=== PATIENT | female | born 1975 | race Caucasian/White ===

== ENCOUNTER 2022-06-14 13:25 | Emergency (ER) | payer BC ==
[2022-06-14 13:37] VITALS: TEMP 97.3; BMI 33.7
[2022-06-14] MEDS ORDERED: GABAPENTIN 300 MG CAPSULE PO ONE (14:21)
[2022-06-14] MEDS ORDERED: SODIUM CHLORIDE 1,000 ML IV STA (14:21)
[2022-06-14] MEDS ORDERED: GABAPENTIN 300 MG CAPSULE ONE (14:36)
[2022-06-14 15:09] LABS: BASO % 0.8 % (0-2.0); EOS % 1.9 % (0-4.5); HEMOGLOBIN 14.1 GM/dL (10.7-15.3); LYMPH % 15.1 % (8-40); MCH 27.6 pg (25.7-33.7); MCHC 32.8 g/dl (32.0-36.0); MEAN CELL VOLUME 84.1 fl (80-96); MONO % 8.1 % (3.8-10.2); NEUT % 74.1 % (42.8-82.8); PLATELET COUNT 290 10^3/uL (134-434); RBC 5.12 M/mm3 (3.60-5.2); RDW 15.2 % (11.6-15.6); WHITE BLOOD COUNT 7.6 K/mm3 (4.0-10.0)
[2022-06-14 15:30] LABS: CALCIUM 9.4 mg/dL (8.5-10.1)
[2022-06-14 15:31] LABS: ALBUMIN 4.1 g/dl (3.4-5.0); BLOOD UREA NITROGEN 9.4 mg/dL (7-18)
[2022-06-14 15:33] LABS: PHOSPHOROUS 1.7 mg/dL (2.5-4.9)
[2022-06-14 15:34] LABS: CREATININE 0.7 mg/dL (0.55-1.3)
[2022-06-14 15:35] LABS: BILIRUBIN,TOTAL 0.4 mg/dL (0.2-1); TOT PROT 7.7 g/dl (6.4-8.2)
[2022-06-14 16:40] VITALS: BP 148/90; PULSE 76; RESP 20
== END 2022-06-14 16:40 | disposition home or self-care (01) ==
LOC: JER 13:25
PROC: 3E0337Z Introduction of Electrolytic and Water Balance Substance into Peripheral Vein, Percutaneous Approach (ICD-10-PCS; principal; 2022-06-14)
DX: E83.39 Other disorders of phosphorus metabolism (principal)
CPT/HCPCS: 36415; 80053; 83735; 84100; 84443; 85025; 93005; 93010; 99284-25